=== PATIENT | female | born 1955 | race Caucasian/White ===

== ENCOUNTER → 2017-03-15 16:38 | Outpatient (CLI) | payer MEDICAID | END | disposition home or self-care (01) | LOC: D.MAMMO | DX: Z12.31 Encounter for screening mammogram for malignant neoplasm of breast (principal) ==

== ENCOUNTER → 2018-10-17 08:30 | Outpatient (CLI) | payer MEDICAID ==
--- NOTE | ~2018-10-17 | ST ---
PATIENT:DEMAR FRANZ MEDICAL RECORD: [id number] SEX: F LOCATION:[facility] ORDER #: ADMISSION DATE: 10/17/18 AGE OF PATIENT: 63 REFERRING PHYSICIAN: INTERPRETING PHYSICIAN: GARCIA ATKINSON MD DATE OF SERVICE: 10/17/2018 Nuclear Stress Test INDICATIONS: Angina, abnormal ECG, hypertension, hyperlipidemia. She was exercised on standard Lexiscan protocol with 32 mCi of sestamibi injected at peak stress, 11 mCi used previously for rest images. FINDINGS: Gated SPECT reveals a preserved ejection fraction at 50% with good wall motioning and thickening and brightening throughout all segments. SPECT IMAGING: Cardiolite was used as myocardial fusion agent. There is reversibility anteriorly apically and laterally, this includes basal, mid, apical, and anterior segments, the apex itself as well as apical lateral, mid lateral, basal lateral segments. The degree of reversibility is mild. The amount of myocardium involved is large. OVERALL IMPRESSION: 1. This is a significantly abnormal nuclear stress test a large area of reversible ischemia anteriorly, apically, and laterally. 2. Gated SPECT reveals preserved ejection fraction at 50%. In this patient with ongoing symptomatology, the current scan does suggest presence of hemodynamically significant coronary artery disease as well as multivessel disease, would consider coronary angiography as follow-up study. TRANSINT:[id number] Voice Confirmation ID: [id number] DOCUMENT ID: [id number] GARCIA ATKINSON MD CC: REBECCA ABREU MD [id number] DICTATION DATE: 10/17/18 1501 SEM MANAGER: 10/18/18 0105 DEP CLI 10/17/18 [id number] [place] [address]
== END | disposition home or self-care (01) ==
LOC: D.HCCARDIO 08:30
PROVIDERS: ATTEND Internal Medicine Interventional Cardiology
DX: I20.9 Angina pectoris, unspecified (principal)

== ENCOUNTER 2018-11-11 10:56 | Outpatient (CLI) | payer OTHER ==
--- NOTE | ~2018-11-11 | HEMODYNAMI ---
PATIENT:DEMAR FRANZ MEDICAL RECORD: [id number] : 55 LOCATION:[facility] ADMISSION DATE: 11/11/18 Generatedon:11/11/201814:04 Patient name: DEMAR FRANZ Patient #: [id number] SSN: DO B: 1955 Date of study: 11/11/2018 Page: Of Hemodynamic Procedure Report Patient Data Patient Demographics Procedure consent was obtained First Name: DEMRA Gender: Female Last Name: OSEI : 1955 [facility] Initial: J Age: 63 year(s) Patient #: [id number] Race: Unknown Additional ID: [id number] Contact details [address]: [address] [place] [address] State: [place] City: [place] Zip code: [address] Past Medical History Allergies: No known allergies Admission Admission Data Admission Date: 11/11/2018 Admission Time: 10:56 Procedure Procedure Types Cath Procedure Diagnostic Procedure LHC LHC w/Coronaries Procedure Description Procedure Date Procedure Date: 11/11/2018 Procedure Start Time: 13:47 Procedure End Time: 14:03 Procedure Staff Name Function Francesco Scanlon MD Performing Physician Carrie Montano RT Monitor Estrella King RN Nurse Chayito Raman RT Scrub Procedure Data Cath Procedure Fluoroscopy Diagnostic fluoroscopy Total fluoroscopy Time: 1.7 time: 1.7 min min Diagnostic fluoroscopy Total fluoroscopy dose: 360 dose: 360 mGy mGy Contrast Material Contrast Material Type Amount (ml) Isovue 370 42 Entry Location Entry Primary Successful Side Size Upsize Upsize Entry Closure Raza ccessful Closure Location (Fr) 1 (Fr) 2 (Fr) Remarks Device Remarks Radial Right 6 Fr Mechanical artery Short Compression Femoral Right 5 Fr Exoseal artery Estimated blood loss: 5 ml Diagnostic catheters Device Type Used For End Catheter Placement DIAGNOSTIC [place] 110cm 5 Procedure Fr catheter (027062) MULTIPACK JL 4.0 5Fr Left Coronary catheter Angiography MULTIPACK 3DRC 5Fr Right Coronary catheter Angiography MULTIPACK Pigtail 5 Fr LV Angiography catheter Procedure Complications No complications Procedure Medications Medication Administration Route Dosage Oxygen etCO2 Nasal cannula 2 l/min Lidocaine 2% added to field 20 Heparin Flush Bag added to field 2 bags (1000units/500ml NS) 0.9% NaCl I.V. 100 ml/hr Versed I.V. 1 mg Fentanyl I.V. 50 mcg Radial Cocktail I.A. 1 syringe (Verapamil 2mg/Nitro 400mcg/Heparin 1500units) Fentanyl I.V. 50 mcg Hemodynamics Rest Heart Rate: 78 (bpm) Pressure Samples Time Site Value (mmHg) Purpose Heart Use Rate(bpm) 13:57 LV 156/10,12 Snapshot 75 13:58 AO 140/81(109) Pullback 77 13:58 LV 130/24,18 Pullback 77 Gradients Valve Time Site 1 Site 2 Mean SEP/DFP Peak To Heart Use (mmHg) (sec/min) Peak Rate (mmHg) (bpm) Aortic 13:58 LV AO 0 77 130/24,18 140/81(109) Calculations Valve P-P Mean Valve Index Valve Source Name Gradient Area Flow (cm2) Aortic 0 0 Snapshots Pre Cath Intra NCS Post Cath Vital Signs Time Heart Resp SPO2 etCO2 NIBP (mmHg) Rhythm Pain Sedation Rate (ipm) (%) (mmHg) Status Level (bpm) 13:43:24 77 18 92 45.5 Measuring NSR 0 (11) 10(A) , No pain 13:44:01 67 20 94 50 177/86(159) NSR 0 (11) 10(A) , No pain 13:48:19 72 18 92 47.7 164/88(137) NSR 0 (11) 10(A) , No pain 13:52:38 72 17 92 46.9 142/83(122) NSR 0 (11) 9(A) , No pain 13:56:57 73 15 93 49.2 140/78(127) NSR 0 (11) 9(A) , No pain 14:01:13 78 14 94 45.4 146/87(120) NSR 0 (11) 10(A) , No pain Medications Time Medication Route Dose Verified Delivered Reason Notes Effectiveness by by 13:41:47 Oxygen etCO2 2 l/min Francesco De La Rosa used for Nasal [facility] Geo King airplane coverer cannula 13:41:54 Lidocaine 2% added 20ml Francesco Maya for local to vial [facility] anesthetic field MD HUITRON 13:43:06 Heparin Flush added 2 bags Francesco Maya used for Bag to [facility] procedure (1000units/500ml field MD HUITRON NS) 13:43:16 0.9% NaCl I.V. 100 Francesco De La Rosa Per ml/hr St Geo griffin MD 13:47:07 Versed I.V. 1 mg Francesco De La Rosa for sedation St Geo King RN, MD 13:47:13 Fentanyl I.V. 50 mcg Francesco De La Rosa for sedation St Geo King RN, MD 13:49:10 Radial Cocktail I.A. 1 Francesco Maya for (Verapamil syringe [facility] vasodilation 2mg/Nitro MD HUITRON 400mcg/Heparin 1500units) 13:52:52 Fentanyl I.V. 50 mcg Francesco Maya for sedation St Geo Scanlon MD, MD Procedure Log Time Note 13:00:01 Time tracking: Regular hours (M-F 7:00 - 5:00) 13:00:05 Plan of Care:Hemodynamics will remain stable., Cardiac rhythm will remain stable., Comfort level will be maintained., Respiratory function will remain adequate., Patient/ family verbilizes understanding of procedure., Procedure tolerated without complication., Recovers from procedure without complications.. 13:17:10 Estrella King RN sent for patient. Start room use. 13:31:10 Patient received from Pre/Post Procedure Room to [facility] 2 Alert and oriented. Tansferred to table in Supine position. 13:31:11 Warm blankets applied, and rosendo hugger turned on for patient comfort. 13:31:12 Correct patient and procedure confirmed by team. 13:31:13 Signed procedure consent form obtained from patient. 13:31:13 ECG and BP/O2 sat monitors applied to patient. 13:31:14 Full Disclosure recording started 13:41:34 Vital chart was started 13:41:47 Oxygen 2 l/min etCO2 Nasal cannula was administered by Estrella King RN; used for procedure; 13:41:54 Lidocaine 2% 20ml vial added to field was administered by Francesco Scanlon MD; for local anesthetic; 13:43:06 Heparin Flush Bag (1000units/500ml NS) 2 bags added to field was administered by Francesco Scanlon MD; used for procedure; 13:43:16 0.9% NaCl 100 ml/hr I.V. was administered by Estrella King RN; Per physician; 13:43:25 Baseline sample Acquired. 13:43:28 Rhythm: sinus rhythm 13:43:40 H&P Date Dictated: 10/10/2018 Within 30 days and on chart., H&P Addendum completed by physician on day of procedure. (MUST COMPLETE FOR ALL OUTPATIENTS). 13:43:41 Pre-procedure instructions explained to patient. 13:43:41 Pre-op teaching completed and patient verbalized understanding. 13:43:43 Family in patients room. 13:43:44 Patient NPO since Midnight. 13:43:50 Patient allergic to No known allergies 13:43:52 Is the patient allergic to Iodine/contrast media? No. 13:43:54 Is patient on blood thinner?No 13:43:56 Patient diabetic? No. 13:43:59 Previous problem with sedation/anesthesia? No ? 13:44:08 Snore? Yes 13:44:09 Sleep apnea? No 13:44:10 Deviated septum? No 13:44:11 Opens mouth fully? Yes 13:44:12 Sticks out tongue? Yes 13:44:13 Airway obstruction? No ? 13:44:19 Dentures? Yes PARTIAL IN 13:44:22 Pre procedure: right dorsailis pedis pulse 2+ Normal; easily identifiable; not easily obliterated 13:44:24 Modified Tim's test Ulnar < 7 seconds 13:44:26 Patient pain scale 0/10 ?. 13:44:33 IV patent on arrival in right forearm with 0.9% NaCl at O. 13:44:35 Lab results completed and on chart. 13:44:39 Right Radial & Right Groin area was prepped with chlora-prep and draped in sterile fashion 13:44:39 Alarms reviewed by R. N. 13:44:40 Sharps counted by scrub and verified by R.N. 13:44:44 Use device set Radial Dx or PCI 13:44:46 ACIST Syringe (42722) opened to sterile field. 13:44:46 Medline Cath Pack ([id number]) opened to sterile field. 13:44:47 Bag Decanter (2002) opened to sterile field. 13:44:47 DIAGNOSTIC WIRE .035 260cm J wire (532927) opened to sterile field. 13:44:48 ACIST Hand Control (54100) opened to sterile field. 13:44:48 ACIST Manifold (91760) opened to sterile field. 13:44:51 MBrace Wrist Support ([id number]) opened to sterile field. 13:44:52 SHEATH 6FR Slender (60-8280) opened to sterile field. 13:44:59 Final Timeout: patient, procedure, and site verified with staff and physician. All members of the team are in agreement. 13:45:00 Right Radial site verified by team. 13:45:04 Maximum allowable Isovue 370 dose 300ml. Physician notified. (300ml for normal creatinines. For patients with creatinine of 1.7 or higher multiply weight(kg) x 5 divided by creatinine.) 13:45:08 Fire Safety Assessment: A--An alcohol-based skin anteseptic being used preoperatively., C--Open oxygen or nitrous oxide is being used., D--An ESU, laser, or fiber-optic light is being used. 13:45:10 Physical assessment completed. ASA score P 2 - A patient with mild systemic disease as per Francesco Scanlon MD. 13:45:13 Sedation plan: IV Moderate Sedation Medication:Versed, Fentanyl 13:47:07 Versed 1 mg I.V. was administered by Estrella King RN; for sedation; 13:47:13 Fentanyl 50 mcg I.V. was administered by Estrella King RN; for sedation; 13:47:30 Procedure started. 13:47:33 Local anesthetic to right radial artery with Lidocaine 2% by Francesco Scanlon MD.INITIAL ACCESS ONLY 13:48:18 A 6 Fr Short sheath was inserted into the Right Radial artery 13:49:10 Radial Cocktail (Verapamil 2mg/Nitro 400mcg/Heparin 1500units) 1 syringe I.A. was administered by Francesco Scanlon MD; for vasodilation; 13:49:37 A DIAGNOSTIC [place] 110cm 5 Fr catheter (722220) was advanced over the wire and used for Procedure. removed, unable to advance 13:51:08 Use device set Multipack Set 13:51:17 SHEATH 5FR [place] (RHN724) opened to sterile field. 13:51:19 DIAGNOSTIC Multipack 5Fr catheter set (FM7578) opened to sterile field. 13:52:52 Fentanyl 50 mcg I.V. was administered by Francesco Scanlon MD; for sedation; 13:53:32 Local anesthetic to right femoral artery with Lidocaine 2% by Francesco Scanlon MD.ADDITIONAL ACCESS 13:53:41 A 5 Fr sheath was inserted into the Right Femoral artery 13:54:19 A MULTIPACK JL 4.0 5Fr catheter was advanced over the wire and used for Left Coronary Angiography. 13:56:18 Catheter removed. 13:56:24 A MULTIPACK 3DRC 5Fr catheter was advanced over the wire and used for Right Coronary Angiography. 13:56:45 Catheter removed. 13:56:47 Zero performed for pressure channel P1 13:57:32 A MULTIPACK Pigtail 5 Fr catheter was advanced over the wire and used for LV Angiography. 13:57:58 LV gram done using TORRES 13:57:59 LV hemodynamics recorded. 13:58:01 Injector settings: Ml/sec: 10, Volume: 20, 13:58:07 EF : 55 % 13:58:42 Catheter removed. 13:58:54 Sheath removed intact; hemostasis achieved with Exoseal to the Right Femoral artery. 13:58:59 Sheath removed intact; hemostasis achieved with Mechanical Compression to the Right Radial artery. 13:59:02 Procedure ended.(Physican Out) 13:59:16 Fluoroscopy time 01.70 minutes. 13:59:20 Fluoroscopy dose: 360 mGy 13:59:20 Flurop Dose total: 360 13:59:24 Contrast amount:Isovue 370 42ml. 13:59:25 Sharps counted by scrub and verified by R.N. 13:59:28 TR band inflated with 12cc of air. 13:59:28 Insertion/operative site no bleeding no hematoma. 13:59:39 Post right femoral artery:stable, clean and dry 13:59:40 Post Procedure Pulses reassessed and unchanged 13:59:43 Post-procedure physical assessment completed. ASA score P 2 - A patient with mild systemic disease as per Francesco Scanlon MD. 13:59:45 Post procedure rhythm: unchanged. 13:59:47 Estimated blood loss: 5 ml 13:59:48 Post procedure instruction explained to patient.Patient verbalizes understanding. 13:59:49 Patient needs reinforcement of post procedure teaching. 13:59:55 Procedure Complication : No complications 13:59:59 See physician's report for complete and final results. 14:00:22 EXOSEAL 5Fr (EX500) opened to sterile field. 14:00:23 TR BAND Standard ([id number]) opened to sterile field. 14:01:16 Procedure and supply charges have been captured, reviewed, submitted and are correct. 14:03:38 Vital chart was stopped 14:03:40 Report given to Pre/Post Procedure Room. 14:03:43 Patient transfered to Pre/Post Procedure Room with Stretcher. 14:03:51 Procedure ended. 14:03:51 Full Disclosure recording stopped 14:03:54 End room use (Document Last) Device Usage Item Name Manufacture Quantity Catalog Hospital Part Current Minimal Lot# / Number Charge Number Stock Stock Serial# Code ACIST Acist 1 41387 397125 135087 937846 20 Syringe Medical (04046) Systems Inc Medline Medline 1 [id number] 014301 75015 809110 5 Cath Pack ([id number]) Bag Microtek 1 984242 30633 714735 5 Decanter Medical Inc. () DIAGNOSTIC St Mauri 1 959083 655827 050383 006456 30 WIRE .035 260cm J wire (033179) ACIST Hand Acist 1 01550 615988 901761 307003 5 Control Medical (16795) Systems Inc ACIST Acist 1 07492 910217 980078 508265 5 Manifold Medical (81606) Systems Inc MBrace Advanced 1 140-0250-00 377676 96450 904356 5 Wrist Vascular Support Dynamics ([id number]) SHEATH 6FR Terumo 1 [id number] 979021 248899 834340 5 Slender (80-1060) DIAGNOSTIC Terumo 1 40-5013 667380 656604 573439 5 [place] 110cm 5 Fr catheter (384026) SHEATH 5FR Terumo 1 MIJ135 122374 430151 612918 5 [place] (KUR222) DIAGNOSTIC Cardinal 1 [id number] 017476 27706 220299 30 Multipack Health 5Fr catheter set (GZ2313) MULTIPACK Cardinal 1 686285 5 JL 4.0 5Fr Health catheter MULTIPACK Cardinal 1 041504 5 3DRC 5Fr Health catheter MULTIPACK Cardinal 1 503596 5 Pigtail 5 Health Fr catheter EXOSEAL 5Fr Cardinal 1 EX500 830973 413650 017166 10 (EX500) Health TR BAND Terumo 1 [id number] 811541 037085 895656 40 Standard (QZC45ITY) Signature Audit [place] Stage Time Signature Unsigned Intra-Procedure 11/11/2018 Carrie 2:04:05 PM Counts RT(R) Signatures Monitor : Carrie Signature : Counts RT Date : Time : [address] [place] [address]
[2018-11-11] MEDS ORDERED: ATIVAN0.5 MG PO (11:08)
[2018-11-11] MEDS ORDERED: PROZAC20 MG PO (11:09)
[2018-11-11] MEDS ORDERED: TRAZODONE HCL150 MG PO (11:09)
[2018-11-11] MEDS ORDERED: FLUTICASONE PRO16 GM NASAL (11:10)
[2018-11-11] MEDS ORDERED: BUMEX2 MG PO (11:11)
[2018-11-11] MEDS ORDERED: K-DUR20 MEQ PO (11:11)
[2018-11-11] MEDS ORDERED: PRAVACHOL40 MG PO (11:12)
[2018-11-11] MEDS ORDERED: MOBIC7.5 MG PO (11:12)
[2018-11-11] MEDS ORDERED: DIOVAN80 MG PO (11:16)
[2018-11-11 11:17] VITALS: BP 172/71; BMI 31.0
[2018-11-11] MEDS ORDERED: ALBUTEROL SULF8.5 GM INH (11:17)
[2018-11-11] MEDS ORDERED: VESICARE10 MG PO (11:18)
[2018-11-11] MEDS ORDERED: GAVILAX510 GM PO (11:18)
[2018-11-11] MEDS ORDERED: OMEPRAZOLE40 MG PO (11:18)
[2018-11-11 11:28] LABS: BASOPHILS 1.2 % (0-2); EOSINOPHILS 4.2 % (0-7); HEMATOCRIT 43.4 % (36.0-48.0); HEMOGLOBIN 14.6 g/dL (12-16); IMMATURE GRANULOCYTES 0.1 % (0-5); LYMPHOCYTES 30.5 % (15-50); MCH 31.9 pg (26.0-34.0); MCHC 33.6 g/dL (31.0-37.0); MEAN PLATELET VOLUME 10.1 fL (7.4-10.4); MONOCYTES 8.3 % (2-11); NEUTROPHILS 55.7 % (40-80); PLATELET COUNT 211 10x3/uL (130-400); RBC 4.57 10x6/uL (4.00-5.40); WBC 7.6 10x3/uL (4.8-10.8)
[2018-11-11 11:35] LABS: ANION GAP 10.2 mmol/L (8-16); CALCIUM 9.1 mg/dL (8.5-10.1); CARBON DIOXIDE 31.6 mmol/L (21.0-32.0); CREATININE - SERUM 0.9 mg/dL (0.6-1.3); POTASSIUM - SERUM 4.8 mmol/L (3.5-5.1)
--- NOTE | 2018-11-11 14:10 | NUR ---
RECIEVED TO ROOM VIA STRETCHER FROM OFFICE ENGINEER WITH TR BAND TO R/WRIST CDI NO BLEEDING OR HEMATOMA NOTED PATIENT CONNECTED TO MONITOR FOR OBSERVATION WITH HR 70 BP 169/82 CHEST PAIN IS DENIED
--- NOTE | 2018-11-11 14:26 | NUR ---
TR BAND REMAINS CDI WITH NO BLEEDING OR HEMATOMA NOTED. HR 70 BP 169/82 CHEST PAIN IS DENIED
--- NOTE | 2018-11-11 14:47 | NUR ---
PATIENT RESTING QUIETY WITH EYES CLOSED NO DISTRESS NOTED. TR BAND IS CDI
--- NOTE | 2018-11-11 15:11 | NUR ---
TR BAND REMAINS CDI TO R/WRIST WITH NO BLEEDING NOTED. HR 70 CHEST PAIN IS DENIED.
--- NOTE | 2018-11-11 15:27 | NUR ---
REPOSITIONED TO HOB UP 30 FOR COMFORT. TR BAND TO R/WRIST IS CDI PATIENT DENIED NAUSEA. SANDWICH AND SODA TO BEDSIDE
--- NOTE | 2018-11-11 15:34 | NUR ---
4 CC AIR REMOVED FROM TR BAND WITH NO BLEEDING OR HEMATOMA.
--- NOTE | 2018-11-11 15:48 | NUR ---
4 CC AIR REMOVED FROM TR BAND WITH NO BLEEDING OR HEMATOMA NOTED. PATIENT SITTING UP ON BEDSIDE TOLERATING SANDWICH AND SODA
--- NOTE | 2018-11-11 15:54 | NUR ---
4 CC AIR REMOVED FROM TR BAND WITH NO BLEEDING NOTED
--- NOTE | 2018-11-11 16:02 | NUR ---
VERBAL AND WRITTEN DISCHARGE GONE OVER WITH PATIENT AND CAREGIVER. TR BAND REMOVED WITH DRESSING APPLIED. PATIENT LEFT VIA WC TO PARKING FOR TRANSPORT HOME WITH CAREGIVER
--- NOTE | 2018-11-19 14:15 | OP ---
PATIENT NAME: DEMAR FRANZ MEDICAL RECORD: [id number] :55 LOCATION:[facility] ADMISSION DATE: SURGEON: GALDINO LARSEN MD DATE OF OPERATION: 11/11/2018 PROCEDURE: Left heart catheterization, selective coronary angiography, right femoral artery approach. CATHETERS: A 5-Moldovan sheath, 5/4 left and right Windy, 5/4 pig. The procedure was well tolerated. The patient was returned to the miranda. Sheath was removed. ExoSeal device was placed. FINDINGS: Left ventriculography in 30-degree TORRES view: Normal wall motion and normal systolic function. CORONARY ANATOMY: LEFT MAIN: Left main is free of disease. LAD: Free of disease in the diagonal system. CIRCUMFLEX: Free of disease in the marginal system. RIGHT CORONARY ARTERY: Dominant artery, gives rise to PDA, free of disease. IMPRESSION: Normal systolic function, normal coronary anatomy. TRANSINT:[id number] Voice Confirmation ID: [id number] DOCUMENT ID: [id number] GALDINO LARSEN MD at 1415 CC: [id number] DICTATION DATE: 11/11/18 1406 DIE OPERATOR: 11/11/18 1532 DEP CLI 11/11/18 [address] [place] [address]
== END 2018-11-11 16:04 | disposition home or self-care (01) ==
LOC: D.CATH 10:56
PROVIDERS: ATTEND Internal Medicine Interventional Cardiology
DX: I20.9 Angina pectoris, unspecified (principal); I10 Essential (primary) hypertension; E78.5 Hyperlipidemia, unspecified; R94.30 Abnormal result of cardiovascular function study, unspecified

== ENCOUNTER → 2019-08-28 10:55 | Outpatient (CLI) | payer OTHER ==
[~2019-08-28 10:55] MED LIST: ALBUTEROL SULF8.5 GM INH; ATIVAN0.5 MG PO; BUMEX2 MG PO; DIOVAN80 MG PO; FLUTICASONE PRO16 GM NASAL; GAVILAX510 GM PO; K-DUR20 MEQ PO; MOBIC7.5 MG PO; OMEPRAZOLE40 MG PO; PRAVACHOL40 MG PO; PROZAC20 MG PO; TRAZODONE HCL150 MG PO; VESICARE10 MG PO
--- NOTE | 2019-08-31 11:19 | EC ---
PATIENT:DEMAR FRANZ DATE OF SERVICE: 08/28/19 SEX: F MEDICAL RECORD: [id number] DATE OF : 55 LOCATION:[facility] AGE OF PATIENT: 64 ADMISSION DATE: 08/28/19 REFERRING PHYSICIAN: INTERPRETING PHYSICIAN: GALDINO LARSEN MD ECHOCARDIOGRAM REPORT ECHO CHARGES 4 ECHO COMPLETE Date: 08/28/19 CLINICAL DIAGNOSIS: HTN/DYSPNEA HX OF PULMONARY HTN ECHOCARDIOGRAPHIC MEASUREMENTS (adult normal given) AC root (d.<3.7cm) 3.2 cm LV Septum d (<1.2 cm> 1.7 cm Valve Excursion 1.6 cm LV Septum (systole) 1.8 cm Left Atria (s.<4.0cm> 4.0 cm LVPW d(<1.2cm) 1.8 cm RV (d.<2.3cm) 4.7 cm LVPW (sytole) 2.1 cm LV diastole(<5.6CM) 4.4 cm MV E-F(>70mm/sec) cm LV systole 2.2 cm LVOT Diameter 1.8 cm MV exc.(>10mm) 1.3 cm Est.ejection fraction (50-75%) % DOPPLER: LVIT cm/sec A 82.0 cm/sec E 98.0 cm/sec LA cm/sec RVSP 64 mmHg LVOT 106 cm/sec AOP1/2T m/s Asc. Ao 149 cm/sec RVOT 87 cm/sec RA cm/sec PA 130 cm/sec AV Gradient Peak 8.85 mmHg AV Mean 4.84 mmHg AV Area 1.6 cm MV Gradient Peak 4.52 mmHg MV Mean 2.63 mmHg MV Area cm COMMENTS: Stringing Machine Tender: 2 OBIE TRIPLETT Dentistry Professor: 3 Dr. Remy TAPE# PACS Pericardial Effusion N DATE OF SERVICE: Adequate 2D, color flow, spectral Doppler, and M-Mode. LVH is present. LV internal dimensions are normal. Wall motion is normal. EF is greater than or equal to 55%. Aortic valve is tricuspid. No evidence of stenosis by Doppler interrogation. Left atrium is normal at 4.0 cm. Mitral valve shows no prolapse. Mild MR. Right-sided chambers grossly normal. Mildly dilated, moderate TR. RV systolic pressure is estimated greater than 64 mmHg via the continuity equation. ECHOCARDIOGRAM REPORT [id number] DEMAR FRANZ TRANSINT:[id number] Voice Confirmation ID: [id number] DOCUMENT ID: [id number] GALDINO LARSEN MD at 1119 CC: [id number] DICTATION DATE: 08/30/19 1218 MANAGER EMPLOYEE RELATIONS: 08/30/192221 DEP CLI 08/28/19 [id number] [place] [address] [id number]
== END | disposition home or self-care (01) ==
LOC: D.HCCECHO 10:55
PROVIDERS: ATTEND Internal Medicine Interventional Cardiology
DX: I10 Essential (primary) hypertension (principal)